=== PATIENT | female | born 1955 | race Hispanic/Latino ===

== ENCOUNTER → 2017-09-22 | Outpatient (CLI) | payer OTHER | END | disposition home or self-care (01) | LOC: SHCH 07:59 | PROVIDERS: ATTEND Internal Medicine Cardiovascular Disease | DX: I10 Essential (primary) hypertension (principal) | CPT/HCPCS: 93306 ==

== ENCOUNTER → 2017-09-25 | Outpatient (CLI) | payer OTHER ==
[~2017-09-25] VITALS: Ht 160 cm; Wt 97.5 kg
[~2017-09-25] MED LIST: REGADENOSON 0.4 MG/5 ML PF SYG IVP SCH
== END | disposition home or self-care (01) ==
LOC: SHCH 08:35
PROVIDERS: ATTEND Internal Medicine Cardiovascular Disease
DX: R07.9 Chest pain, unspecified (principal)
CPT/HCPCS: 78452; 93017; 96374; A9500 ×2; J2785

== ENCOUNTER → 2018-05-19 | Outpatient (CLI) | payer OTHER | END | disposition home or self-care (01) | LOC: OIH 09:54 | PROVIDERS: ATTEND Family Medicine | DX: M17.11 Unilateral primary osteoarthritis, right knee (principal) | CPT/HCPCS: 73560 ==

== ENCOUNTER 2019-03-01 07:19 | Observation (INO) | payer OTHER ==
[~2019-03-01] VITALS: Ht 160 cm; Wt 87.4 kg
[2019-03-01] MEDS ORDERED: PROCHLORPERAZINE EDISYLATE 10 MG/2 ML VIAL ONE (07:45)
[2019-03-01] MEDS ORDERED: SODIUM CHLORIDE 0.9% 1000ML 1,000 ML IV ONE ×2 (07:46→10:14)
[2019-03-01 07:49] LABS: APPEARANCE,URINE Clear (CLEAR); BILIRUBIN,URINE Negative (NEGATIVE); COLOR,URINE Yellow (YELLOW); GLUCOSE, URINE (UA) Negative (NEGATIVE); KETONES,URINE Negative (NEGATIVE); LEUKOCYTE ESTERASE ,URINE Negative (NEGATIVE); NITRATE,URINE Negative (NEGATIVE); OCCULT BLOOD,URINE Negative (NEGATIVE); PROTEIN,URINE Negative (NEGATIVE)
[2019-03-01 08:00] LABS: BASOPHILS % (AUTO) 0.5 % (0.0-5.0); HEMATOCRIT 33.7 % (36-48); LYMPHOCYTES % (AUTO) 40.7 % (21.0-51.0); MEAN CORPUSCULAR VOLUME 85.1 fL (79-99); MONOCYTES % (AUTO) 5.8 % (3.0-13.0); NUCLEATED RED BLOOD CELLS 0.1 % (0.0-0.19); PLATELET COUNT (AUTO) 209 K/uL (130-400); RED BLOOD CELL COUNT(AUTO) 3.96 MIL/uL (4.00-5.50); RED CELL DISTRIBUTION WIDTH 14.1 % (11.0-15.5); WHITE BLOOD COUNT (AUTO) 6.9 K/uL (4.8-10.8)
[2019-03-01 08:20] LABS: CREATININE 0.6 mg/dL (0.5-1.5); POTASSIUM 3.2 mmol/L (3.5-5.1)
[2019-03-01 08:24] LABS: ALBUMIN 3.3 g/dL (3.5-5.0); BILIRUBIN,DIRECT 0.1 mg/dL (0.0-0.3); BILIRUBIN,TOTAL 0.4 mg/dL (0.2-1.0); TOTAL PROTEIN, SERUM 6.5 g/dL (6.0-8.3)
[2019-03-01] MEDS ORDERED: LACTULOSE 20 GM/30 ML UDCUP PO ONE (10:00)
[2019-03-01] MEDS ORDERED: ACETAMINOPHEN 325 MG TAB PO PRN ×2 (10:00)
[2019-03-01] MEDS ORDERED: HYDRALAZINE HCL 20 MG/ML VIAL IV PRN (10:00)
[2019-03-01] MEDS ORDERED: ONDANSETRON HCL 4 MG/2 ML VIAL IV PRN (10:00)
[2019-03-01] MEDS ORDERED: LACTULOSE 20 GM/30 ML UDCUP ONE (10:13)
[2019-03-01 13:15] VITALS: BP 142/73
--- NOTE | 2019-03-01 13:15 | NUR ---
Patient arrived to floor in no apparent distress. Alert and awake x4. Bed placed in lowest position, call light placed within reach. at bedside. Patient states RUQ and LUQ pain. IV to Right wrist patent. Medications reconciled and entered. No other questions or concerns from patient. Addendum: 03/01/19 at 1603 by DORIS SCOTT RN RN Amended: Links added.
[2019-03-01] MEDS ORDERED: TRAM50TA4 PO (14:57)
[2019-03-01] MEDS ORDERED: LOSA25TA41 PO (14:57)
[2019-03-01] MEDS ORDERED: SITA1TAB6 PO (14:57)
[2019-03-01] MEDS ORDERED: LORA10CA9 PO (14:57)
[2019-03-01] MEDS ORDERED: INSU100I21 SQ (14:57)
[2019-03-01] MEDS ORDERED: INSU100I35 SQ ×2 (14:57)
[2019-03-01] MEDS ORDERED: ATOR40TA69 PO (14:57)
[2019-03-01 16:48] VITALS: BP 135/74
[2019-03-01] MEDS: SODIUM CHLORIDE 0.9% 1000ML 1,000 ML IV SCH ×2 (17:11→19:56)
--- NOTE | 2019-03-01 17:36 | NUR ---
DCP CM met with pt discussed dc plans. Pt is independent prior to admission, lives at home w/spouse. Denies any equipments/services. Feels safe to go back home, still drives, spouse and daughter able to assist with transportation and needs as necessary. DC Plan to home once stable. CM to cont to follow up. Addendum: 03/01/19 at 1750 by VAHID YADAV LVN CM Amended: Links added.
[2019-03-01 19:25] VITALS: BP 126/61
[2019-03-01] MEDS ORDERED: LIDOCAINE HCL-MPF 1% 2ML VIAL IV PRN (19:45)
[2019-03-01] MEDS ORDERED: POTASSIUM CHLORIDE 20MEQ/100ML 100 ML IV PRN (19:45)
[2019-03-01] MEDS: FAMOTIDINE/PF 20 MG/2 ML VIAL IV SCH (21:32)
[2019-03-02] VITALS (25 sets, daily range): BP systolic 90–144; BP diastolic 32–78
[2019-03-02] MEDS ORDERED: INSU100C6 SQ (00:07)
[2019-03-02] MEDS: SODIUM CHLORIDE 0.9% 1000ML 1,000 ML IV SCH ×2 (05:56→17:19)
[2019-03-02 06:06] LABS: CREATININE 0.5 mg/dL (0.5-1.5); MAGNESIUM 1.1 mg/dL (1.80-2.40); POTASSIUM 3.5 mmol/L (3.5-5.1)
[2019-03-02] MEDS: INSULIN GLARGINE 100 UNITS/ML 10 ML VIAL SQ SCH ×2 (07:30→22:34)
[2019-03-02] MEDS: INSULIN LISPRO 100 UNIT/ML 3ML SQ SCH ×2 (07:30→17:10)
[2019-03-02] MEDS: METOCLOPRAMIDE 5 MG TABLET PO SCH ×4 (07:30→22:29)
[2019-03-02] MEDS: ENOXAPARIN SODIUM 40 MG/0.4 ML SYRINGE SQ SCH (09:00)
[2019-03-02] MEDS: LOSARTAN 50 MG TABLET PO SCH (09:00)
[2019-03-02] MEDS: LORATADINE 10 MG TABLET PO SCH (09:00)
[2019-03-02] MEDS: FAMOTIDINE/PF 20 MG/2 ML VIAL IV SCH ×2 (09:27→22:29)
--- NOTE | 2019-03-02 10:13 | NUR ---
PT UPDATE Pt taken off the floor for EGD and EUS at this time, Pt stable, no acute condition noted.
[2019-03-02] MEDS ORDERED: POLYETHYLENE GLYCOL 3350 17 GM POWD.PACK PO SCH (10:15)
[2019-03-02] MEDS ORDERED: MAGNESIUM 2GM PREMIX 50ML 50 ML IV PRN (10:15)
[2019-03-02] MEDS ORDERED: PROPOFOL 10 MG/ML 20ML VIAL IV ONE (12:04)
[2019-03-02] MEDS: MAGNESIUM OXIDE 400 MG TABLET PO SCH (14:45)
[2019-03-02 15:12] LABS: MAGNESIUM 1.2 mg/dL (1.80-2.40)
--- NOTE | 2019-03-02 15:29 | NUR ---
RD NOTIFICATION PRIMARY DIAGNOSIS: RIGHT UPPER QUADRANT AND EPIGASTRIC ABDOMEN PAIN. HX: DM, HTN, HYPERLIPIDEMIA, CHOLELITHIASIS. BMIS IS 34; CLASSIFIED OBESE. CURRENT DIET: NPO. MEDS: ZOFRAN, LOVENOX, APRESOLINE, PEPCID, LIPITOR, LORATADINE, COZZAR, REGLAN, LANTUS, HUMALOG. LABS: BG 177, Mg 1.10, Ca 8.1, ALB 3.3. NO EDEMA, SKIN INTACT. PT STATED HAVING CONSTIPATION X5DAYS AND ADMITTED TO HAVING THIS ISSUE FOR MANY YEARS NOW. APPETITE IS POOR PRIOR TO ADMISSION. PT EATS SMALL MEALS AND FEELS FULL FAST PER PT. USUAL BODY WEIGHT 235# PER PT AND HAS NOTICED RECENT, RAPID WEIGHT LOSS. PT IS NOT FAMILIAR WITH HIGH FIBER FOODS. RD RECOMMENDS TO ADVANCE DIET TOLERATED WHEN MEDICALLY FEASIBLE. ADVANCE TO 60GM CCD AND HIGH FIBER DIET. RD PROVIDED HIGH FIBER NUTRITION THERAPY. PT IS NOW FAMILIAR WITH HIGH FIBER FOODS, DRINKING FLUIDS AND INCREASING PHYSICAL ACTIVITY; IMPORTANT TO HELP WITH CONSTIPATION. PT ASKED QUESTIONS AND VERBALIZED UNDERSTANDING. RD WILL CONTINUE TO MONITOR AND FOLLOW UP NEEDED. PLEASE NOTIFY RD IF ANY OTHER NUTRITIONAL CONCERNS ARISE. THANK YOU. Addendum: 03/02/19 at [address] Amended: Links added.
--- NOTE | 2019-03-02 15:30 | NUR ---
DIET EDUCATION RD PROVIDED HIGH FIBER NUTRITION THERAPY. PT IS NOW FAMILIAR WITH HIGH FIBER FOODS, DRINKING FLUIDS AND INCREASING PHYSICAL ACTIVITY; IMPORTANT TO HELP WITH CONSTIPATION. PT ASKED QUESTIONS AND VERBALIZED UNDERSTANDING. RD WILL CONTINUE TO MONITOR AND FOLLOW UP NEEDED. PLEASE NOTIFY RD IF ANY OTHER NUTRITIONAL CONCERNS ARISE. THANK YOU. Addendum: 03/02/19 at [address] Amended: Links added.
[2019-03-02] MEDS ORDERED: POTASSIUM CHLORIDE 20 MEQ ERTAB PO ONE (17:05)
[2019-03-02] MEDS ORDERED: ATORVASTATIN CALCIUM 40 MG TABLET PO SCH (21:00)
[2019-03-02] MEDS ORDERED: POTASSIUM CHLORIDE 10% ELIXIR 20 MEQ/15 ML UDCUP PO SCH (23:00)
[2019-03-03 03:40] VITALS: BP 127/68
[2019-03-03 05:29] LABS: HEMATOCRIT 33.3 % (36-48); MEAN CORPUSCULAR HEMOGLOBIN 28.8 pg (27.0-33.0); MEAN CORPUSCULAR HGB CONC 33.9 g/dL (32.0-36.0); MEAN CORPUSCULAR VOLUME 84.8 fL (79-99); NUCLEATED RED BLOOD CELLS 0.1 % (0.0-0.19); PLATELET COUNT (AUTO) 210 K/uL (130-400); RED BLOOD CELL COUNT(AUTO) 3.93 MIL/uL (4.00-5.50); RED CELL DISTRIBUTION WIDTH 14.2 % (11.0-15.5); WHITE BLOOD COUNT (AUTO) 6.7 K/uL (4.8-10.8)
[2019-03-03 05:34] LABS: CREATININE 0.5 mg/dL (0.5-1.5); POTASSIUM 3.7 mmol/L (3.5-5.1)
[2019-03-03] MEDS: METOCLOPRAMIDE 5 MG TABLET PO SCH ×2 (06:49→11:55)
[2019-03-03] MEDS: INSULIN LISPRO 100 UNIT/ML 3ML SQ SCH (06:50)
[2019-03-03] MEDS: INSULIN GLARGINE 100 UNITS/ML 10 ML VIAL SQ SCH (06:51)
[2019-03-03] MEDS: FAMOTIDINE/PF 20 MG/2 ML VIAL IV SCH (08:23)
[2019-03-03] MEDS: LOSARTAN 50 MG TABLET PO SCH (08:23)
[2019-03-03] MEDS: ENOXAPARIN SODIUM 40 MG/0.4 ML SYRINGE SQ SCH (08:24)
[2019-03-03] MEDS: LORATADINE 10 MG TABLET PO SCH (08:27)
[2019-03-03 08:48] VITALS: BP 150/79
[2019-03-03] MEDS ORDERED: POLYETHYLENE GLYCOL 3350 17 GM POWD.PACK PO SCH (09:00)
[2019-03-03 11:29] VITALS: BP 132/69
[2019-03-03] MEDS: SODIUM CHLORIDE 0.9% 1000ML 1,000 ML IV SCH (11:55)
[2019-03-03] MEDS: MAGNESIUM OXIDE 400 MG TABLET PO SCH (11:55)
--- NOTE | 2019-03-03 12:20 | NUR ---
PT D/C UPDATE Pt d/c home safely, pt to follow up with PCP, Dr. Jimenez Castillo in 3-5 days. pt to make appointment with PCP due to difficulty reaching anyone in the office, pt to follow up with GI, Dr. Ross Mendenhall in 1 week but pt stated she follows up with Dr. Vickers, pt follow up appointment made for Dr. Vickers on 03/09/2019 @ 1045 AM, pt to follow recommendations from the GI. Pt verbalized understanding of d/c instruction, pt PIV taken off with no complication noted, pt off the floor with her spouse, pt refused assistance to be accompanied off the floor when offered.
== END 2019-03-03 12:30 | disposition home or self-care (01) ==
LOC: EDH 07:19 → EDHIP 09:56 → 3DH 13:29
PROVIDERS: ADMIT Internal Medicine; ATTEND Internal Medicine
DX: K29.00 Acute gastritis without bleeding (principal); K57.30 Diverticulosis of large intestine without perforation or abscess without bleeding; E87.6 Hypokalemia; K86.2 Cyst of pancreas; K56.41 Fecal impaction; R68.81 Early satiety; R63.4 Abnormal weight loss; I10 Essential (primary) hypertension; E78.2 Mixed hyperlipidemia; E11.9 Type 2 diabetes mellitus without complications; K80.20 Calculus of gallbladder without cholecystitis without obstruction; Z90.710 Acquired absence of both cervix and uterus; Z87.891 Personal history of nicotine dependence; Z79.4 Long term (current) use of insulin; Z79.899 Other long term (current) drug therapy; Z68.34 Body mass index [BMI] 34.0-34.9, adult
CPT/HCPCS: 36415 ×3; 43239; 43259; 74176; 80048 ×3; 80076; 81003; 82948 ×10; 83690 ×2; 83735 ×3; 84443; 85025; 85027; 88305; 96361 ×3; 96365; 96366; 96367; 96372 ×2; 96375 ×2; 96376 ×2; 99284; G0378 ×49; J0780; J1650; J2704; J3475; J3480; J3490 ×5; J7030 ×3

== ENCOUNTER → 2022-08-06 | Outpatient (CLI) | payer OTHER ==
[~2022-08-06] MED LIST changes: +ATOR40TA69 PO; +INSU100C6 SQ; +INSU100I21 SQ; +LORA10CA9 PO; +LOSA25TA41 PO; -REGADENOSON 0.4 MG/5 ML PF SYG IVP SCH; +SITA1TAB6 PO; +TRAM50TA4 PO
== END | disposition home or self-care (01) ==
LOC: RAH 12:46
PROVIDERS: ATTEND Family Medicine
DX: Z12.31 Encounter for screening mammogram for malignant neoplasm of breast (principal); N63.32 Unspecified lump in axillary tail of the left breast
CPT/HCPCS: 77067

== ENCOUNTER → 2022-09-18 | Outpatient (CLI) | payer OTHER ==
[~2022-09-18] MED LIST changes: -INSU100I21 SQ; +INSU100I22 SQ
== END | disposition home or self-care (01) ==
LOC: SHCH 09:43
PROVIDERS: ATTEND Internal Medicine Cardiovascular Disease
DX: I51.7 Cardiomegaly (principal); R07.9 Chest pain, unspecified
CPT/HCPCS: 93306

== ENCOUNTER → 2022-10-03 | Outpatient (CLI) | payer OTHER, MEDICARE ==
[~2022-10-03] MED LIST changes: +REGADENOSON 0.4 MG/5 ML PF SYG IVP ONE
== END | disposition home or self-care (01) ==
LOC: SHCH 09:08
PROVIDERS: ATTEND Internal Medicine Cardiovascular Disease
DX: R07.9 Chest pain, unspecified (principal); I45.10 Unspecified right bundle-branch block
CPT/HCPCS: 78452; 96374; 93017; J2785; A9500 ×2

== ENCOUNTER → 2023-02-17 | Outpatient (CLI) | payer OTHER, MEDICARE ==
[~2023-02-17] MED LIST changes: -REGADENOSON 0.4 MG/5 ML PF SYG IVP ONE
[2023-02-17 16:42] LABS: T4 (THYROXINE) 8.3 ug/dL (4.7-13.3); THYROID STIMULATING HORMONE 1.28 uIU/mL (0.36-3.74)
== END | disposition home or self-care (01) ==
LOC: LAB 13:49
PROVIDERS: ATTEND Physician Assistant
DX: I10 Essential (primary) hypertension (principal); E78.5 Hyperlipidemia, unspecified
CPT/HCPCS: 36415; 84436; 84443

== ENCOUNTER → 2023-04-24 | Outpatient (CLI) | payer OTHER, MEDICARE | END | disposition home or self-care (01) | LOC: RAH 04-16 09:56 | PROVIDERS: ATTEND Family Medicine | DX: R22.9 Localized swelling, mass and lump, unspecified (principal) | CPT/HCPCS: 76882 ==

== ENCOUNTER → 2023-07-20 | Outpatient (CLI) | payer MEDICARE, OTHER ==
[~2023-07-20] MED LIST changes: +AMLO-258 PO; +GABA600T10 PO; +HYDR-3830 PO; +HYDR12.54 PO; +LORA10TA7 PO; +LOSA100T59 PO; +SOLI5TAB6 PO; +ZOLP10TA2 PO
[2023-07-20 16:42] LABS: HEMOGLOBIN A1C 11.7 % (4.0-6.0)
[2023-07-20 16:49] LABS: ALBUMIN 3.5 g/dL (3.5-5.0); BILIRUBIN,TOTAL 0.5 mg/dL (0.2-1.0); CREATININE 0.5 mg/dL (0.5-1.5); TOTAL PROTEIN, SERUM 7.4 g/dL (6.0-8.3)
== END | disposition home or self-care (01) ==
LOC: LAB 11:54
PROVIDERS: ATTEND Physician Assistant
DX: E78.5 Hyperlipidemia, unspecified (principal); Z79.899 Other long term (current) drug therapy
CPT/HCPCS: 36415; 80053; 80061; 83036

== ENCOUNTER 2023-07-27 06:50 | Day surgery (SDC) | payer MEDICARE, OTHER ==
[2023-07-21 09:21] LABS: BASOPHILS # (AUTO) 0.03 K/uL (0.00-0.20); BASOPHILS % (AUTO) 0.4 % (0.0-5.0); EOSINOPHILS # (AUTO) 0.07 K/uL (0.00-0.70); HEMATOCRIT 41.3 % (36-48); IMMATURE GRANULOCYTE ABSOLUTE 0.03 K/uL (0-1); LYMPHOCYTES # (AUTO) 2.6 K/uL (1.0-4.8); MEAN CORPUSCULAR HEMOGLOBIN 28.2 pg (27.0-33.0); MEAN CORPUSCULAR HGB CONC 33.2 g/dL (32.0-36.0); MONOCYTES # (AUTO) 0.4 K/uL (0.1-1.0); MONOCYTES % (AUTO) 6.3 % (3.0-13.0); NEUTROPHILS # (AUTO) 3.6 K/uL (1.8-7.7); NEUTROPHILS % (AUTO) 53.9 % (40.0-77.0); PLATELET COUNT (AUTO) 265 K/uL (130-400); RED BLOOD CELL COUNT(AUTO) 4.86 MIL/uL (4.00-5.50); RED CELL DISTRIBUTION WIDTH 13.7 % (11.0-15.5); WHITE BLOOD COUNT (AUTO) 6.7 K/uL (4.8-10.8)
[2023-07-21 09:28] VITALS: BP 183/60; PULSE 90; RESP 18
[2023-07-21 09:36] LABS: APPEARANCE,URINE CLEAR (CLEAR); BILIRUBIN,URINE NEGATIVE (NEGATIVE); COLOR,URINE LIGHT-YELLOW (YELLOW); GLUCOSE, URINE (UA) >=1000 mg/dL (NEGATIVE); KETONES,URINE NEGATIVE (NEGATIVE); LEUKOCYTE ESTERASE ,URINE NEGATIVE Leu/uL (NEGATIVE); NITRATE,URINE NEGATIVE (NEGATIVE); OCCULT BLOOD,URINE NEGATIVE (NEGATIVE); PH,URINE 6.5 (5.0-8.0); PROTEIN,URINE NEGATIVE (NEGATIVE)
[2023-07-21 09:37] LABS: ADD UA MICROSCOPIC YES
[2023-07-21 09:38] LABS: BACTERIA,URINE RARE /HPF (None Seen); MUCUS,URINE RARE LPF (None Seen); RBC,URINE 0-1 /HPF (0-1); SQUAMOUS EPITHELIAL CELL,UR RARE /HPF (0-2); WBC,URINE 0-1 /HPF (0-1)
[2023-07-21 09:43] LABS: ALBUMIN 3.6 g/dL (3.5-5.0); BILIRUBIN,TOTAL 0.5 mg/dL (0.2-1.0); CREATININE 0.6 mg/dL (0.5-1.5); POTASSIUM 3.6 mmol/L (3.5-5.1); TOTAL PROTEIN, SERUM 7.5 g/dL (6.0-8.3)
[2023-07-21 09:50] LABS: INR <= 0.93 (0.85-1.15); PROTHROMBIN TIME 10.7 SEC (9.6-11.6)
[2023-07-21 09:51] LABS: PARTIAL THROMBOPLASTIN TIME 29.4 SEC (26.3-35.5)
[~2023-07-27] VITALS: Ht 160 cm; Wt 94.1 kg
[2023-07-27] VITALS (14 sets, daily range): BP systolic 127–154; BP diastolic 52–87; PULSE 81–96; RESP 14–17
[~2023-07-27 06:50] MED LIST changes: -LORA10CA9 PO; -LOSA25TA41 PO; -SITA1TAB6 PO; -TRAM50TA4 PO
[2023-07-27] MEDS ORDERED: CEFAZOLIN SODIUM 2 GM VIAL ONE (07:09)
[2023-07-27] MEDS ORDERED: DEXAMETHASONE SOD PHOSPHATE 10MG/ML 1ML VIAL ONE (07:46)
[2023-07-27] MEDS ORDERED: LIDOCAINE PF 100MG/5ML (2%) SYRINGE 5ML ONE (07:46)
[2023-07-27] MEDS ORDERED: MIDAZOLAM HCL 1 MG/ML 2ML VIAL ONE (07:47)
[2023-07-27] MEDS ORDERED: GLYCOPYRROLATE 0.2 MG/ML 5 ML VIAL ONE (07:47)
[2023-07-27] MEDS ORDERED: ONDANSETRON 4MG INJ ONE (07:47)
[2023-07-27] MEDS ORDERED: PROPOFOL 10 MG/ML 20ML VIAL IV ONE ×2 (07:47→09:08)
[2023-07-27] MEDS ORDERED: FENTANYL CITRATE PF 50 MCG/1 ML 2ML VIAL ONE (07:48)
[2023-07-27] MEDS ORDERED: SUCCINYLCHOLINE CHLORIDE 20 MG/ML 10 ML VIAL ONE (07:48)
[2023-07-27] MEDS ORDERED: NEOSTIGMINE METHYLSULFATE 1MG/ML IV ONE (07:48)
[2023-07-27] MEDS ORDERED: BUPIVACAINE/PF 0.25% 30ML VIAL IJ ONE (08:17)
[2023-07-27] MEDS: CEFAZOLIN SODIUM 2 GM VIAL IVPB ONE ×2 (08:39)
[2023-07-27] MEDS: 0.9%NACL 1000ML 1,000 ML IV ONE (08:52)
[2023-07-27] MEDS: BUPIVACAINE/PF 0.25% 30ML VIAL IJ ONE ×2 (09:05)
[2023-07-27] MEDS ORDERED: MEPERIDINE-PF 25 MG/ML SYG ONE (09:09)
== END 2023-07-27 11:25 | disposition home or self-care (01) ==
LOC: DAH 06:50
PROVIDERS: ATTEND Student in an Organized Health Care Education/Training Program
DX: D17.21 Benign lipomatous neoplasm of skin and subcutaneous tissue of right arm (principal); D17.23 Benign lipomatous neoplasm of skin and subcutaneous tissue of right leg; I10 Essential (primary) hypertension; E11.42 Type 2 diabetes mellitus with diabetic polyneuropathy; E66.01 Morbid (severe) obesity due to excess calories; J45.909 Unspecified asthma, uncomplicated; G47.00 Insomnia, unspecified; F41.9 Anxiety disorder, unspecified; F32.A Depression, unspecified; E78.5 Hyperlipidemia, unspecified; I49.3 Ventricular premature depolarization; Z79.899 Other long term (current) drug therapy; Z98.890 Other specified postprocedural states; Z79.82 Long term (current) use of aspirin; Z79.01 Long term (current) use of anticoagulants; Z98.891 History of uterine scar from previous surgery; Z98.51 Tubal ligation status; Z68.36 Body mass index [BMI] 36.0-36.9, adult
CPT/HCPCS: 93005; 80053; 85025; 85610; 85730; 81001; 36415; 27337; 24071; 25071; 82948 ×2; 88304; A6260; A4663; A4452; J3010; J1100; J0330; J7030; J0665 ×2; J2001; J2250; J2704 ×2; J2405; J3490; J2710; J2175; J0690 ×2; A4930; A4215; A4223; A4213; A4222; A4221; A4600

== ENCOUNTER → 2023-12-21 | Outpatient (CLI) | payer OTHER, MEDICARE ==
[2023-12-21] MEDS: REGADENOSON 0.4 MG/5 ML PF SYG IVP ONE (11:25)
== END | disposition home or self-care (01) ==
LOC: SHCH 07:52
PROVIDERS: ATTEND Internal Medicine Cardiovascular Disease
DX: I49.3 Ventricular premature depolarization (principal); I25.119 Atherosclerotic heart disease of native coronary artery with unspecified angina pectoris
CPT/HCPCS: 78452; 96374; 93017; J2785; A9500 ×2

== ENCOUNTER → 2024-07-05 | Outpatient (CLI) | payer OTHER, MEDICARE ==
[~2024-07-05] MED LIST changes: +GABA-1405 PO; -GABA600T10 PO
[2024-07-05 13:06] LABS: T4 (THYROXINE) 9.4 ug/dL (4.7-13.3)
== END | disposition home or self-care (01) ==
LOC: LAB 11:20
PROVIDERS: ATTEND Physician Assistant
DX: R06.00 Dyspnea, unspecified (principal)
CPT/HCPCS: 36415; 84436; 84479